=== PATIENT | male | born 1980 | race Caucasian/White ===

== ENCOUNTER 2018-07-09 16:34 | Emergency (ER) | payer MEDICAID ==
[~2018-07-09] VITALS: Ht 185.4 cm; Wt 77.7 kg
[2018-07-09 16:38] VITALS: BP 124/70
[2018-07-09] MEDS ORDERED: HYDROcodone/acetaminophen 10/325mg tab PO ONE (17:35)
[2018-07-09] MEDS ORDERED: HYDR-4353 PO (18:31)
== END 2018-07-09 18:55 | disposition home or self-care (01) ==
LOC: ER 16:35
DX: S42.022A Displaced fracture of shaft of left clavicle, initial encounter for closed fracture (principal); F12.90 Cannabis use, unspecified, uncomplicated; F17.200 Nicotine dependence, unspecified, uncomplicated; Z79.899 Other long term (current) drug therapy; V00.131A Fall from skateboard, initial encounter; Y93.51 Activity, roller skating (inline) and skateboarding; Y92.89 Other specified places as the place of occurrence of the external cause; Y99.8 Other external cause status
CPT/HCPCS: 73000; 99283